=== PATIENT | female | born 1980 | race Caucasian/White ===

== ENCOUNTER → 2018-12-10 22:12 | Outpatient (CLI) | payer BC, SELFPAY ==
[2018-05-18 11:32] VITALS: BMI 33.5
[2018-12-10 22:32] LABS: Absolute Lymphocyte Count 2.65 X10^3/uL (0.83-4.51); Absolute Neutrophil Count 3.9 X10^3/uL (2.0-7.7); Basophil# 0.08 X10^3/uL; Basophil% 1.1 % (0-1); Eosinophil# 0.19 X10^3/uL; Eosinophils% 2.6 % (0-5); Hematocrit 41.1 % (37-47); Hemoglobin 14.4 g/dL (12.0-15.0); Lymphocyte # 2.65 X10^3/ul (4.0); Lymphocyte % 36.6 % (19-41); Mean Corpuscular Hgb 30.4 pg (27.0-32.0); Mean Corpuscular Volume 86.7 fL (81-99); Mean Platelet Vol. 11.5 fl (6.2-12.0); Monocyte# 0.46 X10^3/uL; Monocyte% 6.3 % (0-10); NRBC Flagged by Analyzer 0 % (0-5); Neutrophil # 3.85 X10^3/uL (2.7-7.7); Neutrophil % 53.1 % (47-70); Platelet Count 213 K/mm3 (150-450); RBC Distribution Width CV 12.6 % (11.6-14.6); RBC Distribution Width SD 39.5 fl (35.1-43.9); Red Blood Count 4.74 M/mm3 (4.2-5.4); White Blood Count 7.3 K/mm3 (4.4-11.0)
[2018-12-10 22:50] LABS: AST(SGOT) 17 U/L (15-37); Alanine Aminotransfer ALT/SGPT 21 U/L (13-56); Albumin, Serum 3.7 g/dL (3.2-5.0); Alkaline Phosphatase 62 U/L (45-117); Anion Gap 6 (5-15); BUN 12 mg/dL (7-18); BUN/Creat Ratio 11.7 RATIO (10-20); Calcium,Total 8.9 mg/dL (8.5-10.1); Chloride 105 mmol/L (98-107); Cholesterol 159 mg/dL (200); Creatinine, Serum 1.03 mg/dL (0.55-1.02); EST Glomerular Filtration Rate 63 mL/min (>60); Est Glom Filt Rate - Afr Amer 76 mL/min (>60); Globulin 3.6 g/dL (2.2-4.2); Glucose 91 mg/dL (74-106); High Density Lipoprotein 51 mg/dL; Magnesium 1.9 mg/dL (1.6-2.6); Potassium 3.9 mmol/L (3.5-5.1); Protein, Total 7.3 g/dL (6.4-8.2); Sodium Level 140 mmol/L (136-145); Triglycerides 174 mg/dL; Very Low Density Lipoprotein 35 mg/dL (5-40)
[2018-12-13 23:23] LABS: Follicle Stimulating Hormone 5.1 mIU/mL; Luteinizing Hormone 4.5 mIU/mL
== END ==
LOC: OLS.AHF 22:13 → LABSPEC 12-11 08:12
PROVIDERS: Referring Provider Nurse Practitioner; Visit Provider Nurse Practitioner
DX: R00.2 Palpitations (principal); R42 Dizziness and giddiness
CPT/HCPCS: 80053; 80061; 83001; 83002; 83735; 84443; 84484; 85025

== ENCOUNTER → 2020-06-03 21:33 | Outpatient (CLI) | payer BC, SELFPAY ==
[2020-06-03 17:31] VITALS: BMI 38.1
[2020-06-03 22:02] LABS: Absolute Neutrophil Count 3.7 X10^3/uL (2.0-7.7); Basophil# 0.05 X10^3/uL; Basophil% 0.8 % (0-1); Eosinophil# 0.19 X10^3/uL; Eosinophils% 2.9 % (0-5); Hematocrit 39.5 % (37-47); Hemoglobin 13.6 g/dL (12.0-15.0); Lymphocyte % 33.3 % (19-41); Mean Corp Hgb Conc 34.4 g/dL (32-36); Mean Corpuscular Hgb 29.2 pg (27.0-32.0); Mean Corpuscular Volume 84.8 fL (81-99); Mean Platelet Vol. 11.6 fl (6.2-12.0); Monocyte# 0.45 X10^3/uL; Monocyte% 6.8 % (0-10); NRBC Flagged by Analyzer 0 % (0-5); Neutrophil % 55.9 % (47-70); Platelet Count 253 K/mm3 (150-450); RBC Distribution Width CV 12.7 % (11.6-14.6); RBC Distribution Width SD 38.4 fl (35.1-43.9); Red Blood Count 4.66 M/mm3 (4.2-5.4); White Blood Count 6.6 K/mm3 (4.4-11.0)
[2020-06-03 22:20] LABS: ALB/GLOB Ratio 1.1 RATIO (0.9-2.4); AST(SGOT) 16 U/L (15-37); Alanine Aminotransfer ALT/SGPT 23 U/L (13-56); Albumin, Serum 3.7 g/dL (3.2-5.0); Alkaline Phosphatase 67 U/L (45-117); Anion Gap 6 (5-15); BUN 16 mg/dL (7-18); BUN/Creat Ratio 15.7 RATIO (10-20); Calcium,Total 8.4 mg/dL (8.5-10.1); Chloride 106 mmol/L (98-107); Creatinine, Serum 1.02 mg/dL (0.55-1.02); EST Glomerular Filtration Rate 63 mL/min (>60); Est Glom Filt Rate - Afr Amer 76 mL/min (>60); Globulin 3.4 g/dL (2.2-4.2); Glucose 87 mg/dL (74-106); Potassium 3.6 mmol/L (3.5-5.1); Protein, Total 7.1 g/dL (6.4-8.2); Sodium Level 139 mmol/L (136-145)
== END ==
PROVIDERS: Visit Provider Nurse Practitioner
DX: F32.9 Major depressive disorder, single episode, unspecified (principal); G47.00 Insomnia, unspecified
CPT/HCPCS: 80053; 85025

== ENCOUNTER 2021-08-22 08:50 | Day surgery (SDC) | payer BC, SELFPAY ==
--- NOTE | 2021-08-22 | GASB_PTH ---
PATIENT: CHECO CHINO LOC: [facility] U#:[id number] AGE/SX: 41/F ROOM: RE08/22/[address]: Dr. Marcelino Stevens DO : 1980 BED: DIS: 08/22/2021 SPEC #: [id number] RECD: 08/22/21 13:39 STATUS: WIN JOSE #: [id number] MARI: 08/22/21 00:[address]: Marcelino Stevens DEPT: SURGICAL PATHOLOGY RECD BY: Brian Chawla ENTERED: 08/22/21 13:39 SP TYPE: Gastric Bx OTHR DR: Darling Connolly Tissues: A - Gastric mucous membrane B - Esophageal mucous membrane Procedures: Special Stain Group II Surgery Specimen Level IV Alcian Blue/PAS (control) HEADER OPERATION: EGD ([facility] [place]) with PH probe with biopsies PRE-OP DIAGNOSIS: GERD, alternating constipation and diarrhea, history of H. pylori infection TISSUE SUBMITTED: A ? Gastric cardia, B ? Distal esophagus MICROSCOPIC DIAGNOSIS A. Gastric cardia, biopsy: Moderate chronic active gastritis. See comment. B. Distal esophagus, biopsy: Fragments of gastroesophageal mucosa with moderate chronic inflammation. Intestinal metaplasia (goblet cell metaplasia) not identified. See comment. SJ:rg 08/23/2021 COMMENT A. The results of immunohistochemistry for Helicobacter pylori will be reported separately ([id number]). B. Alcian blue/PAS stain with matched control is used in the evaluation of the specimen. MICROSCOPIC DESCRIPTION Slides are reviewed. GROSS DESCRIPTION A - Received in fixative is one container labeled with the patient's name and designated gastric cardia biopsy. The specimen consists of multiple irregular fragments of light dasilva soft tissue that in aggregate measure 0.6 x 0.6 x 0.1 cm. The specimen is totally submitted in one cassette. B - Received in fixative is one container labeled with the patient's name and designated distal esophagus. The specimen consists of two irregular fragments of light dasilva soft tissue that in aggregate measure 0.8 x 0.3 x 0.1 cm. The specimen is totally submitted in one cassette. / ASUNCION:nick 08/22/2021 TC:2 CPT: 42462 x2, 55155
--- NOTE | 2021-08-22 09:15 | HP.PCM_ITS ---
History and Physical Date of Admission: 08/22/21 Intake Visit Reasons: ACID REFLUX/GERD Accompanied by: self Is patient in pain?: No Allergies No Known Allergies Allergy (Verified 06/10/21 12:56) Medications desvenlafaxine succinate 50 mg tablet,extended release 24 hr 50 mg PO DAILY #90 tab 06/03/20 [Rx Confirmed 06/10/21] ropinirole 0.25 mg tablet 0.5 mg PO QHS #60 tab 11/03/20 [Rx Confirmed 06/10/21] famotidine 40 mg tablet 20 mg PO DAILY tab 06/10/21 [History Confirmed 06/10/21] pantoprazole 40 mg tablet,delayed release 40 mg PO BID #180 tab 06/10/21 [Rx Confirmed 06/10/21] trazodone 100 mg tablet 300 mg PO QHS tab 06/10/21 [History] [facility] Medical History (Updated 06/10/21 @ 13:47 by Jacquelyn Gutierrez ENDOSCOPE TECHNICIAN, ENDOSCOPE TECHNICIAN-C) Anxiety disorder Depression GERD (gastroesophageal reflux disease) H PYLORI History of Helicobacter pylori infection Insomnia Vitamin D deficiency Surgical History 3 BREAST SURG F SUSPICIOUS LUMPS ALL BENIGN ABLATION NO MENSES TUBAL LIGATION Family History (Updated 06/10/21 @ 13:19 by Constanza Haley) Mother Asthma Arthritis Breast cancer Depression Hypertension High cholesterol Seizures Thyroid disorder Son Anxiety Depression Thyroid disorder Other CVA (cerebral vascular accident) Cancer Diabetes Heart disease Pancreatic cancer Social History (Updated 06/10/21 @ 13:15 by Constanza Haley) Smoking Status: Never smoker alcohol intake: never substance use type: does not use what type of physical activity do you participate in: walking and weight training HPI HPI Details: CHECO CHINO, is a 41 F who presents to the office today for evaluation of GERD, FH Fernandez's esophagus. 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 She has a long hx of GERD. Symptoms not fully controlled on PPI and [id number]. Told to take PPI at night and [id number] in morning. Eats dinner at 4 pm but still gets nighttime symptoms; eating that early makes the symptoms less severe. Trying to lose weight. Gets cough at night--wakes every night with cough from reflux, or aspirates sometimes. Used to happen 3-4x per week, now maybe once every 1-2 wks on protonix and famotidine. Has to sleep with head elevated, just ordered adjustable bed. Wakes with sore throat. Gets a gurgle in her throat. Occas feels like pills get stuck. Foam comes back up if she drinks a carbonated beverage. Had EGD 12 yrs ago, told she had tissue changes (didn't call it Fernandez's) and H pylori and maybe hiatal hernia. She was on ranitidine at that time. Then went on esomeprazole, stopped PPI since worried about mcfp consequences, but then had to take a lot of TUMS, so started pantoprazole then. She had a reaction to the med used to treat H pylori--developed lip swelling and blisters on her lips. It was a pack of meds for H pylori. So she stopped treatment early. No abd pain. No nausea or vomiting. Bowels vary--can be loose and frequent one day, then can have a couple of days w/o BM. Takes metamucil which helps if she takes it regularly. Has lots of gas. ROS Const Constitutional: Positive for fatigue and weight change ENT ENT: Positive for sore throat Gastro GI: Positive for heartburn Musc Musculoskeletal: Positive for back pain and restless legs Neuro Neurology: Positive for restless legs Endo Endocrine: Positive for fatigue and weight change Exam Const General: cooperative, comfortable, no acute distress, well developed and well groomed Eyes Sclera: sclerae normal Resp Effort & Inspection: normal respiratory effort GI Inspection: normal to inspection Quality Reporting Tobacco Screening ([facility] 138) Smoking Status: Never smoker Assessment and Plan Assessment and Plan (1) GERD (gastroesophageal reflux disease): Status: Acute Qualifiers: Esophagitis presence: with esophagitis Qualified Code(s): K21.0 - Gastro-esophageal reflux disease with esophagitis (2) Alternating constipation and diarrhea: Status: Acute (3) History of Helicobacter pylori infection: Status: Acute Orders: Orders: EGD with 48 pH probe Today K21.0 Plan - Jacquelyn Gutierrez ENDOSCOPE TECHNICIAN, ENDOSCOPE TECHNICIAN-C: 41 yr old female with GERD, hx of H pylori for which she didn't finish treatment due to adverse drug reaction. Significant symptoms--reflux to mouth, aspirating reflux at night--despite taking PPI and H2 chilango. Her mother has hx of Fernandez's esophagus. Plan is EGD with Gayle pH monitor, will have her d/c meds 5 days before procedure. In the meantime she can increase pantoprazole 40 mg to BID. Plan Details Other Medications: Changed: From: famotidine 40 mg PO DAILY 30 tabs 3RF To: famotidine 20 mg PO DAILY From: pantoprazole (Protonix) 40 mg PO DAILY 90 tabs 3RF To: pantoprazole (Protonix) 40 mg PO BID 180 tabs 0RF I have re-examined the patient. There are no clinical changes since date of exam.
[2021-08-22] MEDS: Lactated Ringers 1,000 ML 15 ML IV (09:33)
[2021-08-22 09:37] VITALS: BP 129/70; PULSE 69; RESP 14; TEMP 36.6; O2SAT 100; BMI 33.3
--- NOTE | 2021-08-22 10:15 | IMM_PTH ---
PATIENT: CHECO CHINO LOC: EN U#:[id number] AGE/SX: 41/F ROOM: RE08/22/[address]: Dr. Marcelino Stevens DO : 1980 BED: DIS: 08/22/2021 SPEC #: [id number] RECD: 08/22/21 14:10 STATUS: WIN REPaola #: [id number] MARI: 08/22/21 10:[address]: Marcelino Stevens DEPT: IMMUNOHISTOCHEMISTRY RECD BY: Tammy Alatorre ENTERED: 08/22/21 14:10 SP TYPE: IMMUNO OTHR DR: Darling Connolly Tissues: A - Stomach, NOS Procedures: H Pylori (initial) PHYSICIAN & INSTITUTION [facility] [id number] SPECIMEN INFORMATION: Tissue Source: A ? Gastric cardia Clinical Info: GERD, alternating constipation/diarrhea, history H. pylori infection Specimen Number: [id number] CPT code: 03404 METHODOLOGY: Deparaffinized sections of prefer/formalin-fixed tissue or PAP/DQ stained slides are incubated with monoclonal/polyclonal antibodies/oligonucleotide probes. Localization is made via biotin free immunoperoxidase method. Appropriate controls are performed and reacted as expected. Results on target cell population are indicated in the following table: RESULTS: ANTIBODY / CLONE RESULT Block A H Pylori (polyclonal) positive These tests were developed and their performance characteristics determined by [facility]. They may not have been cleared or approved by the U.S. Food and Drug Administration. The FDA has determined that such clearance or approval is not necessary. The above immunohistochemical/dualISH markers are ordered and reviewed by the Pathologist. INTERPRETATION: A. Gastric cardia, biopsy: Positive for rare Helicobacter pylori organisms. SJ:nick 08/23/2021
[2021-08-22 10:19] VITALS: BP 105/63; BP 129/70; PULSE 63; RESP 16; TEMP 36.3; O2SAT 95
[2021-08-22 10:20] VITALS: BP 104/63; BP 129/70; PULSE 64; RESP 16; O2SAT 99
--- NOTE | 2021-08-22 10:20 | OP.EGD_ITS ---
Patient Name: Leti Arceo Procedure Date: 08/22/2021 9:49 AM Date of : 1980 Age: 41 Procedure: Upper GI endoscopy Indications: Epigastric abdominal pain, Heartburn Providers: Marcelino Stevens DO Medicines: Monitored Anesthesia Care Patient Profile: This is a 41 year old female. Refer to note in patient chart for documentation of history and physical. Patient has symptoms of chronic heartburn. Complications: No immediate complications. Procedure: Pre-Anesthesia Assessment: - Prior to the procedure, a History and Physical was performed, and patient medications and allergies were reviewed. The patient is competent. The risks and benefits of the procedure and the sedation options and risks were discussed with the patient. All questions were answered and informed consent was obtained. Patient identification and proposed procedure were verified by the physician in the pre-procedure area. Mental Status Examination: alert and oriented. Airway Examination: normal oropharyngeal airway and neck mobility. Respiratory Examination: clear to auscultation. CV Examination: normal. Prophylactic Antibiotics: The patient does not require prophylactic antibiotics. Prior Anticoagulants: The patient has taken no previous anticoagulant or antiplatelet agents. After reviewing the risks and benefits, the patient was deemed in satisfactory condition to undergo the procedure. The anesthesia plan was to use moderate sedation / analgesia (conscious sedation). Immediately prior to administration of medications, the patient was re-assessed for adequacy to receive sedatives. The heart rate, respiratory rate, oxygen saturations, blood pressure, adequacy of pulmonary ventilation, and response to care were monitored throughout the procedure. The physical status of the patient was re-assessed after the procedure. After obtaining informed consent, the endoscope was passed under direct vision. Throughout the procedure, the patient's blood pressure, pulse, and oxygen saturations were monitored continuously. The Endoscope was introduced through the mouth, and advanced to the second part of duodenum. The upper GI endoscopy was accomplished without difficulty. The patient tolerated the procedure well. Scope In: 10:03:56 AM Scope Out: 10:13:32 AM Total Procedure Duration Time 0 hours 9 minutes 36 seconds Findings: The Z-line was irregular and was found 34 cm from the incisors. Biopsies were taken with a cold forceps for histology. Verification of patient identification for the specimen was done. Estimated blood loss was minimal. LA Grade A (one or more mucosal breaks less than 5 mm, not extending between tops of 2 mucosal folds) esophagitis with no bleeding was found 33 to 34 cm from the incisors. The STEPHENS capsule with delivery system was introduced through the mouth and advanced into the esophagus, such that the STEPHENS pH capsule was positioned 34 cm from the incisors, which was 6 cm proximal to the GE junction. Suction was applied to the well of the STEPHENS pH capsule to suck in the adjacent mucosa of the esophagus using the external vacuum pump set at a minimum vacuum pressure of 550 mmHg for 30 seconds. The STEPHENS pH capsule was then deployed by depressing the plunger on top of the handle to advance the locking pin into the mucosa, thereby attaching the capsule to the esophagus. The plunger was then rotated a quarter turn clockwise to release the capsule from the delivery system. The delivery system was then withdrawn. Endoscopy was utilized for probe placement and diagnostic evaluation. A few localized, 5 mm non-bleeding erosions were found in the cardia. There were no stigmata of recent bleeding. Biopsies were taken with a cold forceps for histology. Verification of patient identification for the specimen was done. Estimated blood loss was minimal. The first portion of the duodenum was normal. A small hiatal hernia was present. Impression: - Z-line irregular, 34 cm from the incisors. Biopsied. - LA Grade A reflux esophagitis. - Non-bleeding erosive gastropathy. Biopsied. - Normal first portion of the duodenum. - The STEPHENS pH capsule was positioned 34 cm from the incisors, which was 6 cm proximal to the GE junction. Recommendation: - Discharge patient to home. - Resume previous diet. - Continue present medications. - Await pathology results. Procedure Code(s): --- Professional --- 62361, Esophagogastroduodenoscopy, flexible, transoral; with biopsy, single or multiple CPT copyright 2017 [employer]. All rights reserved. The codes documented in this report are preliminary and upon posting machine operator review may be revised to meet current compliance requirements. Marcelino Stevens DO 08/22/2021 10:20:16 AM This report has been signed electronically. Number of Addenda: 1 Note Initiated On: 08/22/2021 9:49 AM Addendum Number: 1 Addendum Date: 12/30/2021 6:12:53 AM MAC was used as sedation for this procedure. Marcelino Stevens DO 12/30/2021 6:13:02 AM This report has been signed electronically.
--- NOTE | 2021-08-22 10:21 | OP.CCLET_ITS ---
12/30/2021 Darling Connolly Re : Upper GI endoscopy procedure for Leti Arceo Stephanier Mohsen This procedure was performed on Sunday, August 22, 2021. My impressions and recommendations are as follows: Impressions : - Z-line irregular, 34 cm from the incisors. Biopsied. - LA Grade A reflux esophagitis. - Non-bleeding erosive gastropathy. Biopsied. - Normal first portion of the duodenum. - The STEPHENS pH capsule was positioned 34 cm from the incisors, which was 6 cm proximal to the GE junction. Recommendations : - Discharge patient to home. - Resume previous diet. - Continue present medications. - Await pathology results. My findings are described in the full procedure note, which is enclosed. If I can be of further assistance, please feel free to contact me at . Sincerely, Marcelino Stevens, 08/22/2021 10:20:16 AM This report has been signed electronically.
[2021-08-22 10:25] VITALS: BP 111/62; BP 129/70; PULSE 64; RESP 16; O2SAT 97
[2021-08-22 10:26] VITALS: BP 115/67; BP 129/70; PULSE 54; RESP 16; TEMP 36.2; O2SAT 98
[2021-08-22 10:51] VITALS: BP 129/70
--- NOTE | 2021-08-26 16:21 | PCM.HP.BLA ---
History and Physical Study: 48-hour Gayle pH capsule was placed on esophagus during EGD on 08/22/21, off meds Indications for Gayle pH Study: long hx of GERD, symptoms not controlled on PPI and [id number], avoids food after 4 PM but still gets nocturnal symptoms, nightly cough and frequent aspiration at night, HOB is elevated, has dysphagia, FH Fernandez's esophagus Study Findings 48-hour overview: significant acid reflux on 2nd day while supine Using data from the worst of the two days, acid exposure time is 28%. Percent acid exposure time is the single parameter which has been shown to best correlate with endoscopic damage. Normal is <4.4% on the worst day, therefore this result is abnormal. The DeMeester Score (normal is <14.72) on the worst of the two days is 100 which is abnormal. The DeMeester Score is a method of adding weights to six common pH measurement parameters, and presenting esophageal acid exposure data as a cumulative score. Symptom Index (SI) >50% is significant (it indicates that >50% of the observed symptoms were associated with reflux). In this study, the SI is 71% which is significant. Symptom Association Probability (SAP) helps to determine if there is a true correlation between symptoms and reflux. SAP >95% indicates a likely correlation. In this study, the SAP is 98% which does indicate a true correlation with heartburn. Interpretation Abnormal study. The DeMeester Score is abnormal, acid exposure time is abnormal, SI is significant, and SAP indicates true correlation between symptoms and reflux.
== END 2021-08-22 11:23 | disposition home or self-care (01) ==
LOC: EN 08:51 → AC 08:52
PROVIDERS: Visit Provider Internal Medicine Gastroenterology
PROC: 0DJ08ZZ Inspection of Upper Intestinal Tract, Via Natural or Artificial Opening Endoscopic (ICD-10-PCS; CPT 43235; principal; 2021-08-22 10:10)
DX: K21.00 Gastro-esophageal reflux disease with esophagitis, without bleeding (principal); K59.00 Constipation, unspecified; Z80.0 Family history of malignant neoplasm of digestive organs; G47.00 Insomnia, unspecified; R19.7 Diarrhea, unspecified; F32.A Depression, unspecified; F41.9 Anxiety disorder, unspecified
CPT/HCPCS: 43239; 88305; 88313; 88342; J7120; J2405

== ENCOUNTER 2021-09-27 11:30 | Outpatient (RCR) | payer BC, SELFPAY | END 2021-09-29 23:59 | LOC: NS 11:30 | PROVIDERS: Referring Provider Internal Medicine Gastroenterology; Visit Provider Internal Medicine Gastroenterology | DX: Z71.3 Dietary counseling and surveillance (principal); E66.9 Obesity, unspecified; Z68.32 Body mass index [BMI] 32.0-32.9, adult; K21.00 Gastro-esophageal reflux disease with esophagitis, without bleeding | CPT/HCPCS: 97802; 97803 ==

== ENCOUNTER → 2022-02-09 | Outpatient (CLI) | payer BC, SELFPAY ==
[2022-02-09 23:15] LABS: Absolute Lymphocyte Count 2.84 X10^3/uL (0.83-4.51); Basophil# 0.07 X10^3/uL; Basophil% 0.7 % (0-1); Hemoglobin 13.4 g/dL (12.0-15.0); Lymphocyte # 2.84 X10^3/ul (0.83-4.51); Lymphocyte % 28.7 % (19-41); Mean Corp Hgb Conc 33.5 g/dL (32-36); Mean Corpuscular Hgb 28.7 pg (27.0-32.0); Mean Corpuscular Volume 85.7 fL (81-99); Mean Platelet Vol. 11.6 fl (6.2-12.0); Monocyte# 0.68 X10^3/uL; Monocyte% 6.9 % (0-10); NRBC Flagged by Analyzer 0 % (0-5); Neutrophil # 6.04 X10^3/uL (2.7-7.7); Neutrophil % 61.2 % (47-70); Platelet Count 225 K/mm3 (150-450); RBC Distribution Width CV 13.2 % (11.6-14.6); Red Blood Count 4.67 M/mm3 (4.2-5.4); White Blood Count 9.9 K/mm3 (4.4-11.0)
[2022-02-09 23:30] LABS: AST(SGOT) 21 U/L (15-37); Alanine Aminotransfer ALT/SGPT 26 U/L (13-56); Albumin, Serum 3.7 g/dL (3.2-5.0); Alkaline Phosphatase 73 U/L (45-117); Anion Gap 8 (5-15); BUN 14 mg/dL (7-18); BUN/Creat Ratio 13.7 RATIO (10-20); CRP, High Sensitivity Cardiac 7.86 mg/L; Calcium,Total 8.8 mg/dL (8.5-10.1); Chloride 104 mmol/L (98-107); Cholesterol 200 mg/dL (200); Creatinine, Serum 1.02 mg/dL (0.55-1.02); EST Glomerular Filtration Rate 63 mL/min (>60); Est Glom Filt Rate - Afr Amer 76 mL/min (>60); Globulin 3.7 g/dL (2.2-4.2); Glucose 99 mg/dL (74-106); High Density Lipoprotein 47 mg/dL; Potassium 3.7 mmol/L (3.5-5.1); Protein, Total 7.4 g/dL (6.4-8.2); Sodium Level 141 mmol/L (136-145); Thyroid Stim Hormone (TSH) 4.27 uIU/mL (0.358-3.74); Triglycerides 175 mg/dL; Very Low Density Lipoprotein 35 mg/dL (5-40)
== END | disposition home or self-care (01) ==
PROVIDERS: PCP Nurse Practitioner; Visit Provider Nurse Practitioner
DX: R07.9 Chest pain, unspecified (principal); K21.9 Gastro-esophageal reflux disease without esophagitis
CPT/HCPCS: 80053; 80061; 84443; 85025; 86141

== ENCOUNTER → 2022-04-13 | Outpatient (CLI) | payer BC, SELFPAY ==
[2022-04-13 22:50] LABS: Thyroid Stim Hormone (TSH) 1.18 uIU/mL (0.358-3.74)
== END | disposition home or self-care (01) ==
PROVIDERS: PCP Nurse Practitioner; Visit Provider Nurse Practitioner
DX: R79.82 Elevated C-reactive protein (CRP) (principal); E03.9 Hypothyroidism, unspecified
CPT/HCPCS: 84443; 86141

== ENCOUNTER → 2022-04-17 | Outpatient (CLI) | payer BC, SELFPAY ==
[2022-04-17 21:55] LABS: Absolute Lymphocyte Count 2.53 X10^3/uL (0.83-4.51); Absolute Neutrophil Count 4.2 X10^3/uL (2.0-7.7); Basophil# 0.07 X10^3/uL; Basophil% 0.9 % (0-1); Eosinophil# 0.17 X10^3/uL; Eosinophils% 2.3 % (0-5); Hematocrit 39.7 % (37-47); Hemoglobin 13.5 g/dL (12.0-15.0); Lymphocyte # 2.53 X10^3/ul (0.83-4.51); Lymphocyte % 33.7 % (19-41); Mean Corpuscular Volume 85.4 fL (81-99); Mean Platelet Vol. 12.3 fl (6.2-12.0); Monocyte# 0.46 X10^3/uL; Monocyte% 6.1 % (0-10); NRBC Flagged by Analyzer 0 % (0-5); Neutrophil # 4.23 X10^3/uL (2.7-7.7); Neutrophil % 56.5 % (47-70); Platelet Count 224 K/mm3 (150-450); RBC Distribution Width SD 39.8 fl (35.1-43.9); Red Blood Count 4.65 M/mm3 (4.2-5.4); White Blood Count 7.5 K/mm3 (4.4-11.0)
[2022-04-17 22:14] LABS: Rheumatoid Factor < 10.0 IU/mL (<15)
[2022-04-19 14:09] LABS: Anti-Centromere B Ab <0.2 AI (0.0-0.9); Anti-Chromatin <0.2 AI (0.0-0.9); Anti-Jo <0.2 AI (0.0-0.9); Anti-Scleroderma-70 AB <0.2 AI (0.0-0.9); RNP Ab 0.4 AI (0.0-0.9); SJOGREN'S Anti-SS-A test < 0.2 AI (0.0-0.9); SJOGREN'S Anti-SS-B test < 0.2 AI (0.0-0.9); Smith Ab <0.2 AI (0.0-0.9)
[2022-04-19 16:49] LABS: Anti-dsDNA Ab <1 IU/mL (0-9)
[2022-04-19 17:30] LABS: EBV Acute VCA IgM < 36.0 U/mL (0.0-35.9)
== END | disposition home or self-care (01) ==
PROVIDERS: PCP Nurse Practitioner; Visit Provider Nurse Practitioner
DX: R79.82 Elevated C-reactive protein (CRP) (principal); R00.2 Palpitations; R42 Dizziness and giddiness
CPT/HCPCS: 85025; 86225; 86235; 86431; 86664; 86665

== ENCOUNTER 2022-05-02 08:24 | Outpatient (RCR) | payer BC, SELFPAY | END 2022-05-02 23:59 | LOC: NS 08:24 | PROVIDERS: PCP Nurse Practitioner; Referring Provider Internal Medicine Gastroenterology; Visit Provider Internal Medicine Gastroenterology | DX: Z71.3 Dietary counseling and surveillance (principal); E66.9 Obesity, unspecified; Z68.32 Body mass index [BMI] 32.0-32.9, adult; K21.00 Gastro-esophageal reflux disease with esophagitis, without bleeding | CPT/HCPCS: 97803 ==

== ENCOUNTER → 2022-05-12 | Outpatient (CLI) | payer BC, SELFPAY ==
--- NOTE | 2022-05-12 12:03 | ECHOD_ITS ---
Reason For Study: Chest Pain Procedure This was a 2D Doppler, Color Flow transthoracic echocardiogram. Exam performed in department. Left Ventricle Normal left ventricle. The left ventricular ejection fraction is 65 %. Normal diastology for age. Right Ventricle Normal right ventricle. Atria The left and right atria are normal. Mitral Valve Mild focal mitral valve calcification of the anterior leaflet. Tricuspid Valve Trivial tricuspid valve insufficiency. Normal pulmonary artery pressure. Aortic Valve Normal aortic valve. Pulmonic Valve The pulmonic valve is not well visualized. Trivial pulmonic valve insufficiency. Great Vessels Normal sized aortic root. Pericardium/Pleural No pericardial effusion. MMode/2D Measurements & Calculations LVIDd: 4.0 cm IVSd: 1.1 cm Ao root diam: 2.8 cm LVIDs: 2.2 cm LVPWd: 1.1 cm RVDd: 3.0 cm FS: 44.9 % LAV(MOD-bp): 28.0 ml LVAd ap4: 18.8 cm2 SV(MOD-sp4): 29.4 ml LAV(MOD-bp) Indexed: 14.6 ml/m2 LVLd ap4: 6.6 cm LAV(MOD-sp2): 30.7 ml EDV(MOD-sp4): 43.8 ml LAV(MOD-sp4): 25.6 ml EDV(sp4-el): 45.5 ml LVAs ap4: 9.3 cm2 LVLs ap4: 5.4 cm ESV(MOD-sp4): 14.5 ml ESV(sp4-el): 13.5 ml EF(MOD-sp4): 67.0 % EF(sp4-el): 70.4 % SV(sp4-el): 32.0 ml LA A4 area: 12.2 cm2 LA dimension(2D): 4.2 cm RA A4 area: 9.9 cm2 Time Measurements MV dec time: 0.27 sec Doppler Measurements & Calculations MV E max derrell: 72.3 cm/sec Lat Peak E' Derrell: 13.5 cm/sec Med Peak E' Derrell: 7.7 cm/sec MV A max derrell: 82.8 cm/sec E/E' lat: 5.4 E/E' med: 9.4 MV E/A: 0.87 Ao V2 max: 139.1 cm/sec LV V1 max: 118.4 cm/sec MV dec slope: 271.9 cm/sec2 Ao max P.7 mmHg LV V1 max P.6 mmHg Ao V2 mean: 92.4 cm/sec Ao mean P.9 mmHg Ao V2 VTI: 27.8 cm PA V2 max: 103.5 cm/sec PI end-d derrell: 67.0 cm/sec TR max derrell: 216.3 cm/sec TR max P.7 mmHg ECHO/Echo Complete Interpretation Summary The left ventricular ejection fraction is 65 %. Ordering Physician: Tamara Prince Referring Physician: Darling Connolly Performed By: Mirlande Jaime, DEE, RVT
[2022-05-12 13:38] LABS: Cholesterol 185 mg/dL (200); High Density Lipoprotein 51 mg/dL; Triglycerides 175 mg/dL; Very Low Density Lipoprotein 35 mg/dL (5-40)
--- NOTE | 2022-05-15 12:13 | STRESSREP_ITS ---
Stress Test Report Date: 05/12/2022 Procedure: Exercise tolerance test Indications: Chest pain Consent: Per the patient Procedure: The patient exercised on a Shilo protocol for 6 minutes achieving a peak heart rate of 148 bpm (84% predicted maximal heart rate) with a peak blood pressure 188/70 mmHg and a peak MET capacity of approximately 7.0 MET's. The baseline ECG demonstrated normal sinus rhythm. The peak exercise ECG demonstrated sinus tachycardia with no ischemic changes. There were no cardiac dysrhythmias pretest, during exercise, or recovery. The functional capacity was considered suboptimal. The patient had no complaints of chest discomfort during exercise or recovery. The examination was discontinued secondary to target heart rate being achieved and leg fatigue. Impression: 1. Technically adequate exercise tolerance test 2. Peak exercise ECG with no ischemic changes. No complaints of angina 3. There were no cardiac dysrhythmias during exercise or recovery This note was generated with Handipointsation software. It may contain incorrect words, spelling, and punctuation that were not noted in checking the note before signing.
== END | disposition home or self-care (01) ==
PROVIDERS: PCP Nurse Practitioner; Visit Provider Internal Medicine Cardiovascular Disease
DX: R07.9 Chest pain, unspecified (principal)
CPT/HCPCS: 36415; 80061; 86141; 93017; 93306

== ENCOUNTER → 2022-11-22 | Outpatient (CLI) | payer BC, SELFPAY ==
[2022-11-22 21:36] LABS: AST(SGOT) 16 U/L (15-37); Alanine Aminotransfer ALT/SGPT 19 U/L (13-56); Albumin, Serum 3.6 g/dL (3.2-5.0); Alkaline Phosphatase 69 U/L (45-117); Anion Gap 7 (5-15); BUN 13 mg/dL (7-18); BUN/Creat Ratio 13.3 RATIO (10-20); CRP, High Sensitivity Cardiac 6.57 mg/L; Calcium,Total 8.4 mg/dL (8.5-10.1); Chloride 108 mmol/L (98-107); Creatinine, Serum 0.98 mg/dL (0.55-1.02); EST Glomerular Filtration Rate 65 mL/min (>60); Est Glom Filt Rate - Afr Amer 79 mL/min (>60); Globulin 3.6 g/dL (2.2-4.2); Glucose 90 mg/dL (74-106); Potassium 3.7 mmol/L (3.5-5.1); Protein, Total 7.2 g/dL (6.4-8.2); Sodium Level 140 mmol/L (136-145); Thyroid Stim Hormone (TSH) 1.14 uIU/mL (0.358-3.74)
== END | disposition home or self-care (01) ==
PROVIDERS: PCP Nurse Practitioner; Visit Provider Nurse Practitioner
DX: R79.82 Elevated C-reactive protein (CRP) (principal); E03.9 Hypothyroidism, unspecified
CPT/HCPCS: 80053; 84443; 86141

== ENCOUNTER → 2023-12-07 | Outpatient (CLI) | payer BC, SELFPAY | END | disposition home or self-care (01) | PROVIDERS: PCP Nurse Practitioner; Referring Provider Nurse Practitioner; Visit Provider Nurse Practitioner | DX: E03.9 Hypothyroidism, unspecified (principal) | CPT/HCPCS: 84443 ==

== ENCOUNTER → 2024-12-03 | Outpatient (CLI) | payer BC, SELFPAY ==
[2024-12-03 22:54] LABS: Hematocrit 39.7 % (37-47); Hemoglobin 13.8 g/dL (12.0-15.0); Immature Granulocytes Count 0.030 X10^3/uL (0.0-0.0); Mean Corp Hgb Conc 34.8 g/dL (32-36); Mean Corpuscular Volume 84.1 fL (81-99); Mean Platelet Vol. 12.2 fl (6.2-12.0); NRBC Flagged by Analyzer 0 % (0-5); Platelet Count 235 K/mm3 (150-450); RBC Distribution Width CV 13.1 % (11.6-14.6); RBC Distribution Width SD 40.1 fl (35.1-43.9); Red Blood Count 4.72 M/mm3 (4.2-5.4); White Blood Count 9.0 K/mm3 (4.4-11.0)
[2024-12-03 23:09] LABS: AST(SGOT) 21 U/L (<=31); Alanine Aminotransfer ALT/SGPT 16 U/L (<=34); Albumin, Serum 4.1 g/dL (3.5-5.0); Alkaline Phosphatase 70 U/L (35-104); Anion Gap 12 (5-15); BUN 9 mg/dL (4-19); BUN/Creat Ratio 10.1 RATIO (10-20); CRP 15.50 mg/L (0.0-3.0); Calcium,Total 9.2 mg/dL (7.6-11.0); Carbon Dioxide 21.7 mmol/L (21.0-32.0); Chloride 104 mmol/L (98-108); Cholesterol 176 mg/dL (<=200); Globulin 3.2 g/dL (2.2-4.2); Glucose 86 mg/dL (70-99); Low Density Lipoprotein Calc. 83 mg/dL; Potassium 3.8 mmol/L (3.3-5.1); Triglycerides 182 mg/dL; Very Low Density Lipoprotein 36 mg/dL (5-40); cholesterol:hdl ratio screen 3.09
== END | disposition home or self-care (01) ==
PROVIDERS: PCP Nurse Practitioner; Visit Provider Nurse Practitioner
DX: R63.5 Abnormal weight gain (principal); F41.1 Generalized anxiety disorder; R79.82 Elevated C-reactive protein (CRP); E03.9 Hypothyroidism, unspecified; K21.00 Gastro-esophageal reflux disease with esophagitis, without bleeding
CPT/HCPCS: 80053; 80061; 84443; 85025; 86140